=== PATIENT | female | born 1940 | race Caucasian/White ===

== ENCOUNTER 2016-06-24 18:04 | Emergency (ER) | payer MEDICARE ==
[~2016-06-24] VITALS: Ht 162.6 cm; Wt 75.6 kg
[~2016-06-24 18:04] MED LIST: AMLO10 PO; ASPI-94 PO; ENAL5 PO; FURO1TAB93 PO; GLYB5TAB3 PO; PROT40TA PO; TOPR25TA2 PO
[2016-06-24 18:06] VITALS: BP 143/67; PULSE 104; RESP 18; TEMP 99.8; O2SAT 97
[2016-06-24 20:05] VITALS: BP 157/61; PULSE 83; RESP 16; O2SAT 83; O2SAT 98
[2016-06-24] MEDS ORDERED: METF500T PO (20:17)
[2016-06-24] MEDS ORDERED: NIAC250T3 PO (20:17)
[2016-06-24] MEDS ORDERED: FURO40TA PO (20:17)
[2016-06-24] MEDS ORDERED: AMLO10TA2 PO (20:17)
[2016-06-24] MEDS ORDERED: ASPI81CH37 CHEW (20:17)
[2016-06-24] MEDS ORDERED: METO25TA3 PO (20:17)
[2016-06-24] MEDS ORDERED: ENAL5TAB PO (20:17)
[2016-06-24] MEDS ORDERED: SIMV40TA PO (20:17)
[2016-06-24] MEDS ORDERED: DOXY100C PO (20:41)
[2016-06-24] MEDS ORDERED: BENZ100 PO (20:41)
--- NOTE | 2016-06-24 20:42 | PD ---
HPI Chief Complaint: Cold / Flu Symptoms Time Seen by Provider: 20:19 Travel History International Travel<30 days: No Contact w/Intl Traveler<30days: No Traveled to known affect area: No History of Present Illness HPI This 76-year-old female comes with complaint of cough and congestion. She says she's had some fever at home. We'll to get the reading on the scan and there is no evidence of pneumonia. She is noted to have some coronary artery calcifications and a hiatal hernia. She does smoke cigarettes. She is not short of breath PFSH Past Medical History Hx Anticoagulant Therapy: No Arthritis: Yes Heart Rhythm Problems: Yes Cancer: No Cardiovascular Problems: Yes (HTN) High Cholesterol: Yes Diabetes: Yes Patient Takes Glucophage: Yes Diminished Hearing: No Endocrine: No Genitourinary: No Hypertension: Yes Musculoskeletal: No Neurologic: No Reproductive: No Respiratory: No Tetanus Vaccination: Unknown Influenza Vaccination: No ?: Not Menopausal: Yes : 4 Para: 4 Tubal Ligation: Yes Past Surgical History Abdominal Surgery: Yes (appendectomy) Appendectomy: Yes Section: Yes (X1) Gynecologic Surgery: Yes (, tubal ) Hysterectomy: No Oral Surgery: Yes (tonsillectomy) Tonsillectomy: Yes Social History Alcohol Use: No Tobacco Use: Yes (1 PPD) Substance Use: No Allergies-Medications (Allergen,Severity, Reaction): Coded Allergies: Bee Sting (Verified Allergy, Severe, Anaphylaxis, 06/24/16) Penicillin (Verified Allergy, Intermediate, RASH, 06/24/16) ITCHY RASH ALL OVER Reported Meds & Prescriptions Reported Meds & Active Scripts Active Reported Niacin 250 Mg Tab 250 Mg PO DAILY Amlodipine (Amlodipine Besylate) 10 Mg Tab 10 Mg PO DAILY Simvastatin 40 Mg Tab 40 Mg PO HS Furosemide 40 Mg Tab 40 Mg PO DAILY Enalapril (Enalapril Maleate) 5 Mg Tab 5 Mg PO DAILY Metformin (Metformin HCl) 500 Mg Tab 500 Mg PO BIDPC With meals Metoprolol Tartrate 25 Mg Tab 25 Mg PO BID Aspirin Low Dose (Aspirin) 81 Mg Chew 81 Mg CHEW DAILY Review of Systems General / Constitutional: Positive: Fever Eyes: No: Diploplia, Blurred Vision HENT: No: Headaches Cardiovascular: No: Chest Pain or Discomfort Respiratory: Positive: Cough Gastrointestinal: No: Vomiting, Diarrhea Genitourinary: No: Dysuria Skin: No Rash Hematologic/Lymphatic: No: Easy Bruising Physical Exam Narrative GENERAL: Well-developed female SKIN: Warm and dry. HEAD: Atraumatic. Normocephalic. EYES: Pupils equal and round. No scleral icterus. No injection or drainage. ENT: No nasal bleeding or discharge. Mucous membranes pink and moist. NECK: Trachea midline. No JVD. CARDIOVASCULAR: Regular rate and rhythm. No murmur appreciated. RESPIRATORY: No accessory muscle use. Clear to auscultation. Breath sounds equal bilaterally. GASTROINTESTINAL: Abdomen soft, non-tender, nondistended. Hepatic and splenic margins not palpable. MUSCULOSKELETAL: No obvious deformities. No clubbing. No cyanosis. No edema. NEUROLOGICAL: Awake and alert. No obvious cranial nerve deficits. Motor grossly within normal limits. Normal speech. PSYCHIATRIC: Appropriate mood and affect; insight and judgment normal. Data Data Last Documented VS Vital Signs Date Time Temp Pulse Resp B/P Pulse Ox O2 Delivery O2 Flow Rate FiO2 06/24/16 20:03 83 18 98 Room Air 06/24/16 18:06 99.8 143/67 MDM Medical Decision Making Medical Screen Exam Complete: Yes Emergency Medical Condition: Yes Medical Record Reviewed: Yes Differential Diagnosis Differential includes pneumonia, bronchitis, influenza Narrative Course Patient has been sick for several days. He had a CT scan done today which does not show any infiltrates. She is a smoker so I think it would be reasonable to put her on antibiotics. I don't think testing for influenza would be beneficial as she's been sick for 2 or 3 days. Diagnosis Primary Impression: Bronchitis Scripts Benzonatate (Tessalon Perles)100 Mg [id number] Mg PO TID PRN (COUGH) #15 CAP Ref 0 Prov:Xavier Petty MD 06/24/16 Doxycycline Hyclate 100 Mg [id number] Mg PO BID #20 CAP Ref 0 Prov:Xavier Petty MD 06/24/16 Disposition: DISCHARGE HOME Condition: Stable Xavier Petty MD Jun 24, 2016 20:42
[2016-06-24] MEDS ORDERED: DOXYCYCLINE HYCLATE 100 MG CAP PO ONE (20:45)
[2016-06-24 20:55] VITALS: BP 156/69; PULSE 75; RESP 16; O2SAT 98
== END 2016-06-24 21:15 | disposition home or self-care (01) ==
LOC: PHED 18:04
DX: J40 Bronchitis, not specified as acute or chronic (principal); R50.9 Fever, unspecified; F17.210 Nicotine dependence, cigarettes, uncomplicated; I10 Essential (primary) hypertension; E78.00 Pure hypercholesterolemia, unspecified; E11.9 Type 2 diabetes mellitus without complications
CPT/HCPCS: 99283

== ENCOUNTER 2017-08-23 11:51 | Emergency (ER) | payer MEDICARE ==
[~2017-08-23 11:51] MED LIST changes: -AMLO10 PO; +AMLO10TA2 PO; -ASPI-94 PO; +ASPI81CH6 CHEW; +BENZ100 PO; +DOXY100C PO; -ENAL5 PO; +ENAL5TAB PO; -FURO1TAB93 PO; +FURO40TA PO; -GLYB5TAB3 PO; +METF500T PO; +METO25TA3 PO; +NIAC250T3 PO; -PROT40TA PO; +SIMV40TA PO; -TOPR25TA2 PO
[2017-08-23 11:54] VITALS: BP 223/87; PULSE 67; RESP 18; TEMP 98; O2SAT 100
--- NOTE | 2017-08-23 12:10 | PD ---
HPI . Fall Chief Complaint: Fall Time Seen by Provider: 12:01 Travel History International Travel<30 days: No Contact w/Intl Traveler<30days: No Traveled to known affect area: No History of Present Illness HPI Patient presents to us via [facility] A waves of injury sustained in a fall which occurred last night. She states that she had gotten up to go to the bathroom and apparently tripped and hit her forehead on the wall. She denies loss of consciousness. She does not have any signs or symptoms of a head injury such as ordered vision, nausea, incoordination, altered mental status. She does not take a blood thinner. In addition to her forehead pain, she is complaining with left ankle pain. She thinks that she may have twisted her ankle during the fall. She rates both the forehead and the ankle pain as 9/10 but states that both are improving. She has an ice pack on the forehead and the icepack has helped her head pain. PFSH Past Medical History Hx Anticoagulant Therapy: No Arthritis: Yes Heart Rhythm Problems: Yes Cancer: No Cardiovascular Problems: Yes (HTN) High Cholesterol: Yes Diabetes: Yes Patient Takes Glucophage: Yes Diminished Hearing: No Endocrine: No Genitourinary: No Hypertension: Yes Musculoskeletal: No Neurologic: No Reproductive: No Respiratory: No Tetanus Vaccination: > 5 Years Influenza Vaccination: Yes ?: Not Menopausal: Yes : 4 Para: 4 Tubal Ligation: Yes Past Surgical History Abdominal Surgery: Yes (appendectomy) Appendectomy: Yes Section: Yes (X1) Gynecologic Surgery: Yes (, tubal ) Hysterectomy: No Oral Surgery: Yes (tonsillectomy) Tonsillectomy: Yes Other Surgery: Yes Social History Alcohol Use: No Tobacco Use: Yes (1/2 PPD) Substance Use: No Allergies-Medications (Allergen,Severity, Reaction): Coded Allergies: bee venom protein (honey bee) (Unverified Allergy, Severe, Anaphylaxis, ) penicillin G (Unverified Allergy, Intermediate, RASH, 08/23/17) ITCHY RASH ALL OVER Reported Meds & Prescriptions Reported Meds & Active Scripts Active Reported Amlodipine (Amlodipine Besylate) 10 Mg Tab 10 Mg PO DAILY Simvastatin 40 Mg Tab 40 Mg PO HS Furosemide 40 Mg Tab 40 Mg PO DAILY Enalapril (Enalapril Maleate) 5 Mg Tab 5 Mg PO DAILY Metformin (Metformin HCl) 500 Mg Tab 500 Mg PO BIDPC With meals Metoprolol Tartrate 25 Mg Tab 25 Mg PO BID Review of Systems Except as stated in HPI: all other systems reviewed are Neg Physical Exam Narrative GENERAL: Awake and alert and in no acute distress. SKIN: Warm and dry. HEAD: Normocephalic. Minor contusion noted to the left forehead. EYES: Pupils are equal. Extraocular movements are intact. Distally NECK: Normal range of motion. Nontender. Bili RESPIRATORY: Nonlabored respirations. Bili MUSCULOSKELETAL: Left ankle has no obvious deformity. No significant bruising or swelling. Tenderness over the lateral malleolus. Ankle is stable. Distally neurovascularly intact. NEUROLOGICAL: A and O 3. Cranial nerves are grossly intact. She is moving all 4 extremities equally. PSYCHIATRIC: Appropriate mood and affect. Data Data Last Documented VS Vital Signs Date Time Temp Pulse Resp B/P (MAP) Pulse Ox O2 Delivery O2 Flow Rate FiO2 08/23/17 13:11 75 16 217/90 (132) 99 Room Air 08/23/17 11:[address] Brain W/O Iv Contrast(Rout) (08/23/17 12:01) Ankle, Complete ([id number]) (08/23/17 12:01) MDM Medical Decision Making Medical Screen Exam Complete: Yes Emergency Medical Condition: Yes Differential Diagnosis My differential diagnosis of head trauma includes but is not limited to scalp contusion, concussion, intracerebral hemorrhage. Differential diagnosis of extremity trauma includes but is not limited to fracture, sprain or strain, dislocation, contusion Narrative Course This patient presents for the evaluation of injury sustained in a fall last night. She struck her forehead on the wall and probably twisted her left ankle. Her physical exam is pretty unremarkable. She has a very minor contusion noted to the left forehead. She has some tenderness in the lateral malleolus but no deformity, swelling, bruising or instability. Last Impressions Head CT 08/23/17 1201 Signed Impressions: Service Date/Time: Wednesday, August 23, 2017 12:12 - CONCLUSION: 1. No acute intracranial abnormalities. Frontal scalp swelling. Devin Nick MD Ankle X-Ray 08/23/17 1201 Signed Impressions: Service Date/Time: Wednesday, August 23, 2017 12:23 - CONCLUSION: Moderate lateral soft tissue swelling. Possible avulsion type injuries of the tip of the medial and lateral malleolus. Vijay Walls MD The plain films were independently viewed by me. The patient will be placed in a Hansen dressing and cast shoe. She will be given crutches. She will be given a referral to podiatry. Diagnosis Primary Impression: Scalp contusion Qualified Codes: S00.03XA - Contusion of scalp, initial encounter Additional Impression: Closed left ankle fracture Qualified Codes: S82.892A - Other fracture of left lower leg, initial encounter for closed fracture Referrals: Demarcus BurnetteM Patient Instructions: Ankle Fracture (DC), General Instructions, Scalp Contusion in Adults (ED) Med/Other Pt SpecificInfo: Prescription(s) given Scripts Hydrocodone-Acetaminophen ([place]) 5 Mg-325 Mg Tab 1 TAB PO Q4H Y for PAIN, #12 TAB 0 Refills Prov: Jamilah Malik MD 08/23/17 Disposition: 01 DISCHARGE HOME Condition: Stable Jamilah Malik MD Aug 23, 2017 12:09
--- NOTE | 2017-08-23 12:30 | RADRPT ---
EXAM DATE/TIME: 08/23/2017 12:12 [facility] COMPARISON: No previous studies available for comparison. INDICATIONS : Trauma. Tripped and fell and hit forehead last night. RADIATION DOSE: 59.86 CTDIvol (mGy) MEDICAL HISTORY : Diabetes mellitus type 2. Hypertension. SURGICAL HISTORY : Appendectomy. section.Tubal ligation. ENCOUNTER: Initial ACUITY: 1 day PAIN SCALE: 5/10 LOCATION: cranial TECHNIQUE: Multiple contiguous axial images were obtained of the head. Using automated exposure control and adj ustment of the mA and/or kV according to patient size, radiation dose was kept as low as reasonably a chievable to obtain optimal diagnostic quality images. DICOM format image data is available electro nically for review and comparison. FINDINGS: CEREBRUM: The ventricles are normal for age. No evidence of midline shift, mass lesion, hemorrhage or acute in farction. No extra-axial fluid collections are seen. POSTERIOR FOSSA: The cerebellum and brainstem are intact. The 4th ventricle is midline. The cerebellopontine angle i s unremarkable. EXTRACRANIAL: The visualized portion of the orbits is intact. SKULL: The calvaria is intact. No evidence of skull fracture. CONCLUSION: 1. No acute intracranial abnormalities. Frontal scalp swelling. Devin Nick MD on August 23, 2017 at 12:20 Board Certified Radiologist. This report was verified electronically.
--- NOTE | 2017-08-23 12:52 | RADRPT ---
EXAM DATE/TIME: 08/23/2017 12:23 [facility] COMPARISON: No previous studies available for comparison. INDICATIONS : Fall, complains of left ankle pain and swelling. MEDICAL HISTORY : Diabetes mellitus type II. Hypertension SURGICAL HISTORY : Appendectomy. section. Tubal ligation. ENCOUNTER: Initial ACUITY: 2 days PAIN SCORE: 5/10 LOCATION: Left ankle FINDINGS: Osseous structures are osteopenic. There is moderate soft tissue swelling of lateral aspect of the an kle. On the frontal view, there is a small ossific density measuring 5 mm located inferior to the med ial malleolus, possibly representing an avulsion injury. There is a similar appearing ossific density inferior to the tip of the medial malleolus, also suggesting avulsion injury. Ankle mortise is intac t. No radiopaque foreign bodies. Small plantar and retro- calcaneal spur. CONCLUSION: Moderate lateral soft tissue swelling. Possible avulsion type injuries of the tip of the medial and l ateral malleolus. Vijay Walls MD on August 23, 2017 at 12:49 Board Certified Radiologist. This report was verified electronically.
[2017-08-23 13:11] VITALS: BP 217/90; PULSE 75; RESP 16; O2SAT 99
[2017-08-23] MEDS ORDERED: NORC5TAB PO (13:19)
[2017-08-23 13:38] VITALS: BP 205/90
== END 2017-08-23 13:51 | disposition home or self-care (01) ==
LOC: PHED 11:51
DX: S82.892A Other fracture of left lower leg, initial encounter for closed fracture (principal); S00.03XA Contusion of scalp, initial encounter; W01.0XXA Fall on same level from slipping, tripping and stumbling without subsequent striking against object, initial encounter
CPT/HCPCS: 70450; 73610; 99284; E0113; L3260

== ENCOUNTER 2017-12-31 12:47 | Inpatient (IN) ==
[2017-12-31] MEDS ORDERED: Diphtheria/Tetanus/Pertussis Vaccine Inj 0.5 ML Syringe IM ONE (13:07)
[2017-12-31] MEDS ORDERED: Sodium Chlor 0.9% Inj 500 ML IV.SIG ONE (13:07)
[2017-12-31] MEDS ORDERED: Lidocaine PF 1% Inj 30 ML Vial INFILTRATN ONE (13:07)
--- NOTE | 2017-12-31 13:19 | ED ---
HPI General Chief complaint: Fall Stated complaint: Fall Time Seen by Provider: 12/31/17 13:07 Source: patient and EMS Mode of arrival: EMS History of Present Illness HPI narrative: 77yF brought in by EMS after a fall. The patient states that she was trying to clean her ceiling fan when she "lost my footing", falling backwards off the bed and landing on her right ankle. She reports immediate severe pain to her right ankle with inability to bear weight, and also reports sustaining a skin tear to her left hand. Denies head injury or LOC, neck or back pain, chest or abdominal pain. She does not recall when her last tetanus shot was. She does not take any anticoagulants or antiplatelets. Family history non-contributory. Related Data Home Medications Medication Instructions Recorded Confirmed enalapril maleate 20 mg PO DAILY 12/31/17 12/31/17 hydrocodone-acetaminophen 1 tab PO Q6H PRN 12/31/17 12/31/17 metformin 500 mg PO BID 12/31/17 12/31/17 metoprolol tartrate 25 mg PO BID 12/31/17 12/31/17 sertraline 50 mg PO DAILY 12/31/17 12/31/17 simvastatin 40 mg PO QPM 12/31/17 12/31/17 Allergies Allergy/AdvReac Type Severity Reaction Status Date / Time bee venom protein (honey bee) Allergy Severe Anaphylaxis Unverified 12/31/17 12: 52 penicillin G Allergy Intermediate RASH Unverified 12/31/17 12:52 Review of Systems Except as stated in HPI: all other systems reviewed are negative Constitutional Denies fever(s) Eyes Denies blurry vision ENT Reports nasal congestion Cardiovascular Denies chest pain Respiratory Denies cough Gastrointestinal Denies nausea Genitourinary Denies dysuria Musculoskeletal Denies back pain Neurologic Denies confusion Psychiatric Denies confusion PMFSH History History Provided By: Patient Medical History Medical History Chronic back pain (Acute) Depression (Acute) Hyperlipemia (Acute) Hypertension (Acute) Type 2 diabetes mellitus (Acute) Surgical History Surgical History H/O section (Acute) H/O tubal ligation (Acute) Hx of appendectomy (Acute) Hx of tonsillectomy (Acute) Social History Social History Substance History: No History of Abuse Second Hand Smoke Exposure: Yes Smoking Status: Current every day smoker Tobacco Type: Cigarettes How Often Do You Have a Drink Containing Alcohol: Never Recent Travel in [facility] within the Last 8 Weeks: No Recent Out of Country Travel within the Last 8 Weeks: No Immunization History Tetanus Immunization: >5 Years Exam Const General: healthy appearing and no acute distress [facility] Head: normocephalic and atraumatic Face and sinus: normal facial exam Other: No raccoon eyes or Downs's sign No epistaxis or septal hematoma No intraoral trauma Mallampati III Eyes General: appearance normal, both eyes and all related structures Pupils: PERRL Neck Other: No midline cervical spinal tenderness Chest Chest: normal inspection of the chest Resp Effort & Inspection: normal respiratory effort Auscultation: no rhonchi and no wheezes Cardio Rate: regular rate Rhythm: regular rhythm GI Inspection: non-distended Palpation: soft and nontender Skin Other: 2 cm skin tear to dorsum of left hand/ wrist, no active bleeding, non- tender, normal painless ROM of wrist/ elbow/ fingers Superficial abrasion to left wrist Neuro General: alert, awake, oriented x3 and no focal motor deficits Extrem Other: Angulated deformity of right ankle, dorsalis pedis pulses 2+ on left and 1+ on right, able to wiggle all digits, sensation intact Psych Affect: normal affect Procedures Orthopedic Fracture Reduction Fracture #1: Time Out Performed: Yes Side: right Fracture Reduction Location: other (ankle) Analgesia: procedural sedation and hematoma block Technique: direct manipulation and traction/counter-traction Post Reduction X-rays Demonstrate: acceptable reduction Post-Reduction Neuro Exam: intact Post-Reduction Vascular Exam: intact Splint Applied: Yes Patient Tolerated Procedure: well Procedural Sedation Indications: fracture/dislocation reduction ASA Class: ASA 2 Moderate Systemic Disease Time of Last PO Intake: 08:00 Preparation: air sampling and monitoring applied, pulse oximeter, capnometry used, supplemental O2 applied, suction/airway equipment at bedside and IV secured IV Propofol Dose (mgs): 50 Patient Tolerated Procedure: well Complications: none Additional Comments: Patient directly observed and kept on air sampling and monitoring, capnometry, and pulse ox until she returned to baseline mental status. Course Consultations Consultation #1: Case discussed with ortho AP working with Dr. Gil. Patient will need operative intervention tomorrow AM, requests that patient be made NPO after midnight. Will d/w internal medicine team. Time: 16:25 Initial Documented Vital Signs Temperature 97.7 F 12/31/17 12:53 Pulse Rate 60 12/31/17 12:53 Respiratory Rate 17 12/31/17 12:53 Blood Pressure 176/71 H 12/31/17 12:53 Pulse Oximetry 96 12/31/17 12:53 Last Documented Vital Signs Temperature 97.7 F 12/31/17 12:53 Pulse Rate 58 L 12/31/17 14:00 Respiratory Rate 20 12/31/17 14:00 Blood Pressure 163/68 H 12/31/17 14:00 Pulse Oximetry 97 12/31/17 14:00 Medical Decision Making MDM Narrative Medical decision making narrative: Assessment: 77yF presenting with right ankle fracture/ dislocation and left hand skin tear Plan: Pain control Update tetanus Patient will need sedation for urgent reduction of ankle dislocation, last meal around 8 AM today Ortho consult Addendum: Case discussed with ortho and internal medicine; patient needs operative intervention tomorrow AM. Will be NPO after midnight. I explained these results to the patient; she understands and agrees. Lab Data Lab results reviewed: Yes I reviewed the patient's lab results. Result diagrams: 12/31/17 13:15 12/31/17 13:15 Lab Results 12/31/17 12/31/17 12/31/17 Range/Units 13:15 13:15 13:15 WBC 8.3 (4.0-11.0) th/mm3 RBC 3.77 L (4.00-5.30) mil/mm3 Hgb 10.6 L (11.6-15.3) gm/dL Hct 31.2 L (35.0-46.0) % MCV 82.7 (80.0-100.0) fL MCH 28.1 (27.0-34.0) pg MCHC 34.0 (32.0-36.0) % RDW 14.3 (11.6-17.2) % Plt Count 126 L (150-450) th/mm3 MPV 10.0 (7.0-11.0) fL Neut % (Auto) 62.2 (16.0-70.0) % Lymph % (Auto) 25.9 (9.0-44.0) % [place] % (Auto) 5.8 (0.0-8.0) % Eos % (Auto) 5.1 H (0.0-4.0) % Baso % (Auto) 1.0 (0.0-2.0) % Neut # (Auto) 5.2 (1.8-7.7) th/mm3 Lymph # (Auto) 2.2 (1.0-4.8) th/mm3 [place] # (Auto) 0.5 (0.0-0.9) th/mm3 Eos # (Auto) 0.4 (0.0-0.4) th/mm3 Baso # (Auto) 0.1 (0.0-0.2) th/mm3 WBC Differential . Differential Comment Auto diff final PT 9.9 (9.8-11.6) sec INR 1.0 Ratio Sodium 142 (136-145) meq/L Potassium 5.4 H (3.5-5.1) meq/L Chloride 113 H (98-107) meq/L Carbon Dioxide 23.1 (21.0-32.0) meq/L Anion Gap 6 (5-15) meq/L BUN 41 H (7-18) mg/dL Creatinine 1.78 H (0.50-1.00) mg/dL Estimated GFR 28 L (>89) mL/min Random Glucose 103 (74-106) mg/dL Calcium 8.2 L (8.5-10.1) mg/dL Imaging Data Radiologist's impression: Ankle X-Ray 12/31/17 13:40 CONCLUSION: Bimalleolar fractures with medial subluxation of the distal tibia. Discharge Plan Discharge Disposition Patient Disposition: 30 Still Patient Discharge Condition Condition: Good Discharge Details Diagnosis: Bimalleolar fracture of right ankle, Closed dislocation of right ankle Physicians Team ED Provider: Jessica Lowe Primary Care Provider: UNKNOWN, Other Providers: Bull Gil Rxs /Orders / Referrals /Forms Prescriptions: No Action metformin 500 mg Tablet 500 mg PO BID RF: 0 enalapril maleate 20 mg Tablet 20 mg PO DAILY RF: 0 simvastatin 40 mg Tablet 40 mg PO QPM RF: 0 sertraline 50 mg Tablet 50 mg PO DAILY RF: 0 metoprolol tartrate 25 mg Tablet 25 mg PO BID RF: 0 hydrocodone-acetaminophen 5-325 mg Tablet 1 tab PO Q6H PRN (Reason: Acute Pain) RF: 0 Discharge Interventions Interventions: Vital Signs Last Done: 12/31/17 14:00 Status ED Status: With Doctor
[2017-12-31 13:25] LABS: Baso # (Auto) 0.1 th/mm3 (0.0-0.2); Eos # (Auto) 0.4 th/mm3 (0.0-0.4); Eos % (Auto) 5.1 % (0.0-4.0); Hematocrit 31.2 % (35.0-46.0); Hemoglobin 10.6 gm/dL (11.6-15.3); Lymph # (Auto) 2.2 th/mm3 (1.0-4.8); Lymph % (Auto) 25.9 % (9.0-44.0); Mean Corpuscular Hemoglobin 28.1 pg (27.0-34.0); Mean Corpuscular Volume 82.7 fL (80.0-100.0); Mono # (Auto) 0.5 th/mm3 (0.0-0.9); Mono % (Auto) 5.8 % (0.0-8.0); Neut # (Auto) 5.2 th/mm3 (1.8-7.7); Neut % (Auto) 62.2 % (16.0-70.0); Platelet Count 126 th/mm3 (150-450); Red Blood Count 3.77 mil/mm3 (4.00-5.30); Red Cell Distribution Width 14.3 % (11.6-17.2); White Blood Count 8.3 th/mm3 (4.0-11.0)
[2017-12-31 13:37] LABS: Prothrombin Time 9.9 sec (9.8-11.6)
[2017-12-31 13:47] LABS: Calcium 8.2 mg/dL (8.5-10.1); Carbon Dioxide 23.1 meq/L (21.0-32.0); Potassium 5.4 meq/L (3.5-5.1)
--- NOTE | 2017-12-31 15:38 | XR ---
EXAM DATE: 12/31/2017 2:34 PM EDT AGE/SEX: 77 years / Female INDICATIONS: Post reduction right ankle. CLINICAL DATA: This is the patient's subsequent encounter. Patient reports that signs and symptoms h ave been present for 1 day and indicates a pain score of 8/10. MEDICAL/SURGICAL HISTORY: None. None. COMPARISON: [facility], ANKLE LEFT COMPLETE ([id number]), 08/23/2017. . FINDINGS: Bimalleolar fractures noted. There is some persistent medial subluxation of the distal tibia on the t alar dome. Overlying soft tissue swelling is present. CONCLUSION: Bimalleolar fractures with medial subluxation of the distal tibia. Electronically signed by: Devin Nick MD 12/31/2017 3:36 PM EDT
[2017-12-31] MEDS ORDERED: Bisacodyl 10 MG Supp RECTAL PRN (16:44)
[2017-12-31] MEDS ORDERED: Temazepam 15 MG Capsule PO PRN (16:44)
[2017-12-31] MEDS ORDERED: Morphine Inj 4 MG/ML Vial IV.PUSH PRN (16:50)
[2017-12-31] MEDS ORDERED: Acetaminophen 325 MG Tablet PO PRN (16:50)
[2017-12-31] MEDS ORDERED: Naloxone Inj 0.4 MG/ML Vial IV.PUSH PRN (16:50)
--- NOTE | 2017-12-31 17:10 | P.HPIM ---
History of Present Illness Primary Care Physician: UNKNOWN Chief Complaint: I fell History of Present Illness: 77-year-old white female with history of hypertension, hyperlipidemia, diabetes mellitus type 2 who was up in a ladder in her bedroom attempting to clean her ceiling fans of which she accidentally lost her balance and fell sustaining injury of her right ankle. She was found to have a bimalleolar layer fracture with medial subluxation of the distal tibial and reduction was done in the emergency room. At this time, patient states her pain is controlled. She did not lose consciousness during the fall. She has no other complaints at this time. - Diagnosis (1) Bimalleolar fracture of right ankle (2) Acute kidney injury (3) CKD (chronic kidney disease) stage 3, GFR 30-59 ml/min (4) Diabetes mellitus (5) Hypertension Review of Systems All other systems reviewed negative except as stated in HPI [facility] - History History Provided By: Patient - Medical History Medical History: Medical History (Last Reviewed 12/31/17 @ 17:04 by Alee Warner MD) Chronic back pain Depression Hyperlipemia Hypertension Type 2 diabetes mellitus - Surgical History Surgical History: Surgical History (Last Reviewed 12/31/17 @ 17:04 by Alee Warner MD) H/O section H/O tubal ligation Hx of appendectomy Hx of tonsillectomy - Family History Family History: Family History (Last Updated 12/31/17 @ 17:05 by Alee Warner MD) Mother Stomach cancer Father PVD (peripheral vascular disease) - Tobacco History Second Hand Smoke Exposure: Yes Tobacco Use In Past 30 Days: Yes Smoking Status: Current every day smoker Tobacco Type: Cigarettes Packs Per Day: 1.5 - Alcohol History How Often Do You Have a Drink Containing Alcohol: Never - Substance Use History Substance History: No History of Abuse - Travel History Recent Travel in the [place] Within the Last 8 Weeks: No Recent Travel Out of the Country Within the Last 8 Weeks: No - Immunization History Tetanus Immunization: >5 Years Medications and Allergies Active Medications: Active Medications Acetaminophen (Tylenol) 650 mg PO Q6HR PRN PRN Reason: PAIN SCALE 1 TO 2 Hydrocodone Bitart/Acetaminophen (Lincoln 5/325) 1 tab PO Q4H PRN PRN Reason: PAIN SCALE 3 TO 5 Hydrocodone Bitart/Acetaminophen (Lincoln 7.5/325) 1 tab PO Q4H PRN PRN Reason: PAIN SCALE 6 TO 10 Al Hydroxide/Mg Hydroxide (Milk Of Magnesia Liq) 30 ml PO Q12H PRN PRN Reason: Mild Constipation Bisacodyl (Dulcolax Supp) 10 mg RECTAL DAILY PRN PRN Reason: SEVERE CONSITIPATION Lactated Ringer's (Lr 1000 Ml Inj) 1,000 mls @ 75 mls/hr IV.CONT .[id number] CHRISTOS Lactulose (Lactulose Liq) 30 ml PO DAILY PRN PRN Reason: SEVERE CONSITIPATION Morphine Sulfate (Morphine Inj) 2 mg IV.PUSH Q3H PRN PRN Reason: PAIN 3-5; IF UABLE TO TAKE PO Morphine Sulfate (Morphine Inj) 4 mg IV.PUSH Q3H PRN PRN Reason: PAIN 6-10;IF UNABLE TO TAKE PO Naloxone HCl (Narcan Inj) 0.4 mg IV.PUSH UNSCH PRN PRN Reason: SEE LABEL COMMENTS Ondansetron HCl (Zofran Inj) 4 mg IV.PUSH Q6H PRN PRN Reason: NAUSEA OR VOMITING Senna/Docusate Sodium (Penny-Colace) 1 tab PO BID CHRISTOS Sennosides (Senokot) 17.2 mg PO Q12H PRN PRN Reason: Moderate Constipation Temazepam (Restoril) 15 mg PO HS PRN PRN Reason: INSOMNIA Allergies Allergy/AdvReac Type Severity Reaction Status Date / Time bee venom protein (honey bee) Allergy Severe Anaphylaxis Unverified 12/31/17 12: 52 penicillin G Allergy Intermediate RASH Unverified 12/31/17 12:52 Home Medications Medication Instructions Recorded Confirmed Type enalapril maleate 20 mg PO DAILY 12/31/17 12/31/17 History hydrocodone-acetaminophen 1 tab PO Q6H PRN 12/31/17 12/31/17 History metformin 500 mg PO BID 12/31/17 12/31/17 History metoprolol tartrate 25 mg PO BID 12/31/17 12/31/17 History sertraline 50 mg PO DAILY 12/31/17 12/31/17 History simvastatin 40 mg PO QPM 12/31/17 12/31/17 History Exam Vital signs: Vital Signs 12/31/17 12:53 12/31/17 13:30 12/31/17 13:48 Temperature 97.7 F Pulse Rate 60 Respiratory Rate 17 Blood Pressure 176/71 H Pulse Oximetry 96 100 100 12/31/17 14:00 Temperature Pulse Rate 58 L Respiratory Rate 20 Blood Pressure 163/68 H Pulse Oximetry 97 Intake & Output 12/30/17 12/31/17 12/31/17 18:59 06:59 18:59 Weight 74.843 kg Narrative: GENERAL: Well-nourished well-developed white female in no acute distress SKIN: Warm and dry. HEAD: Atraumatic. Normocephalic. EYES: Pupils equal and round. No scleral icterus. No injection or drainage. ENT: No nasal bleeding or discharge. Mucous membranes pink and moist. Oropharynx benign NECK: Trachea midline. No JVD. CARDIOVASCULAR: Regular rate and rhythm. RESPIRATORY: No accessory muscle use. Few expiratory wheezes by basilar area GASTROINTESTINAL: Abdomen soft, non-tender, nondistended. Hepatic and splenic margins not palpable. Normoactive bowel sounds MUSCULOSKELETAL: Right lower leg stabilized in a splint and Musa bandage wrapped circumferentially, neurovascularly intact NEUROLOGICAL: Awake and alert to person place time. No obvious cranial nerve deficits. Motor grossly within normal limits. Normal speech. PSYCHIATRIC: Appropriate mood and affect; insight and judgment normal. Results - Labs CBC & Chem 7: 12/31/17 13:15 12/31/17 13:15 Labs: Short CBC 12/31/17 Range/Units 13:15 WBC 8.3 (4.0-11.0) th/mm3 Hgb 10.6 L (11.6-15.3) gm/dL Hct 31.2 L (35.0-46.0) % Plt Count 126 L (150-450) th/mm3 BMP 12/31/17 13:15 Sodium 142 Potassium 5.4 H Chloride 113 H Carbon Dioxide 23.1 BUN 41 H Creatinine 1.78 H Calcium 8.2 L - Imaging Impressions Ankle X-Ray 12/31/17 13:40 CONCLUSION: Bimalleolar fractures with medial subluxation of the distal tibia. - ECG Attestation: I personally reviewed and interpreted this ECG as follows: Interpretation: EKG showed sinus rhythm with heart rate of 52 Caprini VTE Risk Assessment Caprini VTE Risk Assessment: Moderate/High Risk (score >= 2) Caprini Risk Assessment Model: Point Value = 1 Point Value = 2 Point Value = 3 Point Value = 5 Age 41-60 Minor surgery BMI > 25 kg/m2 Swollen legs Varicose veins or History of unexplained or recurrent spontaneous Oral contraceptives or hormone replacement Sepsis (< 1 month) Serious lung disease, including pneumonia (< 1 month) Abnormal pulmonary function Acute myocardial infarction Congestive heart failure (< 1 month) History of inflammatory bowel disease Medical patient at bed rest Age 61-74 Arthroscopic surgery Major open surgery (> 45 min) Laparoscopic surgery (> 45 min) Malignancy Confined to bed (> 72 hours) Immobilizing plaster cast Central venous access Age >= 75 History of VTE Family history of VTE Factor V Leiden Prothrombin [id number] Lupus anticoagulant Anticardiolipin antibodies Elevated serum homocysteine Heparin-induced thrombocytopenia Other congenital or acquired thrombophilia Stroke (< 1 month) Elective arthroplasty Hip, pelvis, or leg fracture Acute spinal cord injury (< 1 month) Prophylaxis Regimen: Total Risk Factor Score Risk Level Prophylaxis Regimen 0-1 Low Early ambulation 2 Moderate Order ONE of the following: *Sequential Compression Device (SCD) *Heparin 5000 units SQ BID 3-4 Higher Order ONE of the following medications: *Heparin 5000 units SQ TID *Enoxaparin/Lovenox 40 mg SQ daily (WT < 150 kg, CrCl > 30 mL/min) *Enoxaparin/Lovenox 30 mg SQ daily (WT < 150 kg, CrCl > 10-29 mL/min) *Enoxaparin/Lovenox 30 mg SQ BID (WT < 150 kg, CrCl > 30 mL/min) AND/OR *Sequential Compression Device (SCD) 5 or more Highest Order ONE of the following medications: *Heparin 5000 units SQ TID (Preferred with Epidurals) *Enoxaparin/Lovenox 40 mg SQ daily (WT < 150 kg, CrCl > 30 mL/min) *Enoxaparin/Lovenox 30 mg SQ daily (WT < 150 kg, CrCl > 10-29 mL/min) *Enoxaparin/Lovenox 30 mg SQ BID (WT < 150 kg, CrCl > 30 mL/min) AND *Sequential Compression Device (SCD) Assessment and Plan - Assessment (1) Bimalleolar fracture of right ankle Code(s): S82.841A - Displaced bimalleolar fracture of right lower leg, initial encounter for closed fracture Status: Acute (2) Acute kidney injury Code(s): N17.9 - Acute kidney failure, unspecified Status: Acute (3) CKD (chronic kidney disease) stage 3, GFR 30-59 ml/min Code(s): N18.3 - Chronic kidney disease, stage 3 (moderate) Status: Chronic (4) Diabetes mellitus Code(s): E11.9 - Type 2 diabetes mellitus without complications Status: Chronic (5) Hypertension Code(s): I10 - Essential (primary) hypertension Status: Chronic - Plan 77-year-old white female with a history of diabetes mellitus type 2, hypertension who presented after sustaining a fall with 1. Right bimalleolar lower ankle fracture with dislocationpain medication has been initiated. Consult orthopedic surgery Dr. Sue will plan for surgical intervention in the morning. 2. Hypertension, chronic essential resume home enalapril if Hyperkalemia improves. 3. Acute kidney injury superimposed on chronic kidney disease stage IIIavoid nephrotoxins; IV fluid hydration and monitor 4. Hyperlipidemiaresume statin 5. Diabetes mellitus type 2stop home metformin due to chronic kidney disease, Accu-Cheks with sliding scale insulin 6. DVT prophylaxisSCD to left lower leg. Anticoagulation to be held until surgical intervention completed. 7. Tobacco usecessation counseling provided. Encouraged incentive spirometry use, DuoNeb as needed to be provided. 8. hyperkalemia - hold enalapril today, recheck in am (1) Bimalleolar fracture of right ankle Qualifiers: Encounter type: initial encounter Fracture type: closed Qualified Code(s): S82.841A - Displaced bimalleolar fracture of right lower leg, initial encounter for closed fracture (4) Diabetes mellitus Qualifiers: Diabetes mellitus type: type 2 Diabetes mellitus intermission coordinator insulin use: without intermission coordinator use Diabetes mellitus complication status: with kidney complications Diabetes mellitus complication detail: with chronic kidney disease Chronic kidney disease stage: stage 3 (moderate) Qualified Code(s): E11.22 - Type 2 diabetes mellitus with diabetic chronic kidney disease; N18.3 - Chronic kidney disease, stage 3 (moderate) (5) Hypertension Qualifiers: Hypertension type: essential hypertension Qualified Code(s): I10 - Essential (primary) hypertension
[2017-12-31] MEDS ORDERED: Dextrose 50% in Water 50 ML Vial IV.PUSH PRN (17:14)
[2017-12-31] MEDS: Morphine Inj 4 MG/ML Vial IV.PUSH PRN (19:29)
[2018-01-01] MEDS: Morphine Inj 4 MG/ML Vial IV.PUSH PRN ×2 (02:59→06:00)
[2018-01-01] MEDS: Insulin NovoLOG Aspart Correctional Sugar Inj SQ SCH ×5 (03:00→20:10)
[2018-01-01] MEDS: Senna/Docusate Sodium 8.6/50 MG Tablet PO SCH ×3 (03:00→20:10)
[2018-01-01] MEDS: Metoprolol Tartrate 25 MG Tablet PO SCH ×4 (03:01→20:09)
[2018-01-01 06:10] LABS: Calcium 8.3 mg/dL (8.5-10.1); Carbon Dioxide 23.3 meq/L (21.0-32.0); Potassium 4.8 meq/L (3.5-5.1)
--- NOTE | 2018-01-01 06:38 | P.PNOP ---
Subjective Interval history: s/p fall at home right ankle pain. no other complaints Physical Exam Vital signs: Vital Signs 12/31/17 12:53 12/31/17 13:30 12/31/17 13:48 Temperature 97.7 F Pulse Rate 60 Respiratory Rate 17 Blood Pressure 176/71 H Pulse Oximetry 96 100 100 12/31/17 14:00 12/31/17 16:00 12/31/17 18:00 Temperature Pulse Rate 58 L 56 L 60 Respiratory Rate 20 19 19 Blood Pressure 163/68 H 161/72 H 165/70 H Pulse Oximetry 97 97 12/31/17 20:00 12/31/17 21:52 12/31/17 23:15 Temperature 97.4 F L Pulse Rate 52 L 54 L Respiratory Rate 18 15 Blood Pressure 131/53 L Pulse Oximetry 95 01/01/18 00:00 01/01/18 02:06 01/01/18 04:00 Temperature 98.2 F 98.0 F Pulse Rate 51 L 58 L Respiratory Rate 18 18 18 Blood Pressure 127/57 L 124/56 L Pulse Oximetry 96 98 Intake & Output 12/31/17 12/31/17 01/01/18 06:59 18:59 06:59 Weight 74.843 kg Other: Date of Last Bowel Movement 12/31/17 Narrative: RLE: +short leg splint. good repair. nvi Results - Labs CBC & Chem 7: 12/31/17 13:15 01/01/18 04:19 Laboratory Results - last 24 hr 12/31/17 12/31/17 12/31/17 13:15 13:15 13:15 WBC 8.3 RBC 3.77 L Hgb 10.6 L Hct 31.2 L MCV 82.7 MCH 28.1 MCHC 34.0 RDW 14.3 Plt Count 126 L MPV 10.0 Neut % (Auto) 62.2 Lymph % (Auto) 25.9 Davidson % (Auto) 5.8 Eos % (Auto) 5.1 H Baso % (Auto) 1.0 Neut # (Auto) 5.2 Lymph # (Auto) 2.2 Davidson # (Auto) 0.5 Eos # (Auto) 0.4 Baso # (Auto) 0.1 WBC Differential . Differential Comment Auto diff final PT 9.9 INR 1.0 Sodium 142 Potassium 5.4 H Chloride 113 H Carbon Dioxide 23.1 Anion Gap 6 BUN 41 H Creatinine 1.78 H Estimated GFR 28 L POC Glucose Random Glucose 103 Calcium 8.2 L 12/31/17 01/01/18 19:32 04:19 WBC RBC Hgb Hct MCV MCH MCHC RDW Plt Count MPV Neut % (Auto) Lymph % (Auto) Davidson % (Auto) Eos % (Auto) Baso % (Auto) Neut # (Auto) Lymph # (Auto) Davidson # (Auto) Eos # (Auto) Baso # (Auto) WBC Differential Differential Comment PT INR Sodium 141 Potassium 4.8 Chloride 112 H Carbon Dioxide 23.3 Anion Gap 6 BUN 44 H Creatinine 1.73 H Estimated GFR 29 L POC Glucose 116 H Random Glucose 98 Calcium 8.3 L - Imaging Impressions Ankle X-Ray 12/31/17 13:40 CONCLUSION: Bimalleolar fractures with medial subluxation of the distal tibia. Assessment and Plan - Assessment and Plan 1) Right Ankle Fx -npo -consents -surgery today with Linette
[2018-01-01] MEDS: Sertraline 50 MG Tablet PO SCH (07:00)
--- NOTE | 2018-01-01 07:46 | MB ---
cc: Bull Sue MD DATE: 01/01/2018 DATE OF CONSULTATION: 01/01/2018. CONSULTING PHYSICIAN: Dr. Alee Warner. BRIEF HISTORY: Ghazala is a 77-year-old female who has multiple medical problems including hypertension, high cholesterol, smoking dependence and diabetes. She was attempting to clean her fans. She was on a stepladder. She lost her balance and fell. She had immediate right ankle pain. She presented to the Emergency Room, where x-rays revealed a displaced right ankle fracture. She is currently awake and alert on the orthopedic floor. Her only complaint is her right ankle. She denies dizziness, syncope or loss of consciousness. She describes a mechanical fall. PAST MEDICAL HISTORY: Chronic back pain, depression, high cholesterol, hypertension, type 2 diabetes and smoking dependence. PAST SURGICAL HISTORY: , tubal ligation, appendectomy, tonsillectomy. ALLERGIES: PENICILLIN AND BEE STINGS. FAMILY HISTORY: Positive for stomach cancer in her mother and peripheral vascular disease in her father. SOCIAL HISTORY: The patient smokes a pack and a half of cigarettes a day. She denies drug use. She denies alcohol use. REVIEW OF SYSTEMS: The patient denies fevers, chills, weight loss, headache, visual changes, hearing loss, chest pain, palpitations, shortness of breath, nausea, vomiting, urinary changes, diarrhea, neck pain, back pain, skin rashes, weakness or numbness of extremities, anxiety or depression. She complains of right ankle pain. LABORATORY DATA: The patient has a white blood cell count of 8.3, hematocrit of 31.2, platelet count of 126. INR is 1.0, BUN is 41, creatinine is 1.78. X-RAYS: X-rays of right ankle were reviewed. X-rays reveal a displaced right ankle bimalleolar fracture. PHYSICAL EXAMINATION: GENERAL: The patient is a 77-year-old female. She is awake and alert. She is alert and oriented x3. She is in no acute distress. She is mildly overweight. VITAL SIGNS: Temperature 98.0, pulse 58, respirations 18, blood pressure 124/56, O2 saturation is 98% on room air. HEAD: The patient is normocephalic. Pupils are equal. NECK: Soft, nontender. The trachea is midline. ABDOMEN: Soft, nontender, nondistended. EXTREMITIES: Examination of bilateral upper extremities reveals no pain with shoulder, elbow or wrist motion. She has intact sensation in all fingers. She has good cap refill in all fingers. Skin is intact to both hands. Radial pulses are palpable. Examination of her right leg reveals no pain with hip or knee motion. She is tender to palpation over the right ankle. She has mild swelling present. Skin is intact. She has good capillary refill in her toes. Examination of left leg reveals no pain with hip, knee or ankle motion. Skin is intact. Dorsalis pedis pulses palpable. Sensation is intact. IMPRESSION: 1. Diabetes. 2. Hypertension. 3. Smoking dependence. 4. 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 5. Displaced right ankle fracture. PLAN: Treatment options were discussed with the patient. At this point, I would recommend open reduction internal fixation of right ankle fractures. Risks of surgery include bleeding, infection, injuries to arteries, nerves or blood vessels; nonunion, malunion, wound infection, wound complications, as well as medical complications including blood clot, stroke, heart attack and . If the patient has increased swelling, she may need a staged procedure with temporary external fixation followed by delayed open reduction and internal fixation. I explained to her that she will need to be strictly nonweightbearing for 6-8 weeks. She will need to stop smoking. Smoking greatly increases the risk of nonunion and infection and wound complications. Postoperatively, the patient will be placed on calcium and vitamin D. All questions were answered. A mid-level provider in my office, nurse practitioner or PA, may see this patient on a follow-up basis and continue to implement the objective of this plan including: Starting or adjusting medications, injections of muscle, tendon, bursa or joints, cast application, orthotic or brace application, physical therapy, further radiographic studies including x-ray, MRI, CT, ultrasounds or bone scan, vascular studies, neurologic studies, or other specialist consultations, and proceeding with surgical management as appropriate. MD TAYLER Michelle/GORDO , 07:24 AM , 07:45 AM
[2018-01-01] MEDS ORDERED: Non-Formulary Drug (Enalapril Maleate [Enalapril Maleate] 20 MG) PO SCH (09:00)
[2018-01-01] MEDS ORDERED: Post-op Orders (for Pharmacy) OTHER STA (10:26)
--- NOTE | 2018-01-01 10:26 | P.OP ---
- Preoperative Diagnosis (1) Closed trimalleolar fracture of right ankle Date of procedure: 01/01/18 Procedure: Open reduction internal fixation right ankle trimalleolar fracture, open reduction internal fixation right ankle syndesmosis Anesthesia: LFORYA Surgeon: Bull Gil MD Swim Instructor: VICKY Cruz PA-C The surgical procedure was assisted by my physician medical assistant. My P.A. presence was necessary throughout this case for the manipulation and positioning of the surgical extremity. My P.A. was assisting me throughout the duration of this procedure. The skill set of a physician medical assistant was medically necessary to complete this procedure. During the surgical case the surgical product sales consultant was working at the back table and the physician medical assistant was directly assisting me. Operation and Findings: Implants used: ITS Plan of activity: Nonweightbearing Details of procedure: Patient was seen and evaluated preoperatively and found to have a displaced right trimalleolar ankle fracture. Informed consent was obtained after a detailed discussion of risk and benefits of surgery. The operative site was marked. Patient was brought to the OR, placed on the OR table, and given IV sedation and general endotracheal anesthesia. IV antibiotics were given preoperatively. A timeout procedure was performed. The skin and soft tissue were examined. Patient had minimal swelling and soft tissue appeared to be ready for definitive open reduction internal fixation. The left leg was prepped with alcohol followed by Hibiclens and draped in the usual sterile fashion. Attention was turned towards the distal fibula. A four-inch incision was made over the distal fibula. The subcutaneous tissue was dissected with Bovie. The fracture site was visualized. The fracture site was cleaned with curets. The fracture was now reduced. The fracture keyed into anatomic alignment. Fracture tenaculums and K-wires were used to hold provisional fixation. A plate was selected. The plate was provisionally held to bone with K-wires. 3.5 cortical screws were used to compress the plate to bone. Multiple screws were placed above and below the fracture. Next attention was turned towards the medial malleolus. The medial malleolus supposed through a 3 cm incision. Saphenous vein was retracted. Fracture was visualized. Fracture was cleaned with curettes. Fracture was now reduced and keyed into anatomic alignment. K wires were used to hold provisional fixation. 2 guidepins for the 4.0 cannulated screws were placed in a retrograde fashion across the fracture. Fluoroscopy was used to confirm guidepin placement. Cannulated drill was placed over the guidepin. 2 appropriate length screws were now placed. Good compression was applied. Fluoroscopy confirmed well aligned fracture with well-placed hardware. Next, attention was turned to the syndesmosis. The syndesmosis was stressed. There was widening of the syndesmosis with external rotation of the ankle. The syndesmosis was now held in a reduced position with the ankle in neutral position. Two cortical screws were now placed through the fibula plate into the tibia. Fluoroscopy confirmed appropriate screw placement with well-aligned syndesmosis. Incisions were thoroughly irrigated. The subcutaneous tissue was closed with 3-0 Vicryl and the skin was closed with 3-0 nylon. Sterile dressings were applied. A well molded well-padded splint was applied. The patient was transferred to Recovery in stable condition. Needle and sponge counts were correct.
[2018-01-01] MEDS ORDERED: fentaNYL Citrate Inj 100 MCG/2 ML Ampul ONE (11:08)
[2018-01-01] MEDS ORDERED: Lidocaine PF 1% Inj 5 ML Syringe INFILTRATN ONE (12:00)
[2018-01-01] MEDS ORDERED: Neostigmine Inj 5 MG/5 ML Syringe IV.PUSH ONE (12:00)
[2018-01-01] MEDS ORDERED: Glycopyrrolate Inj 1 MG/5 ML Syringe IV.PUSH ONE (12:00)
[2018-01-01] MEDS ORDERED: Ketorolac Inj 30 MG/ML (IVP) Vial IV.PUSH ONE (12:00)
[2018-01-01] MEDS ORDERED: Phenylephrine/NS 1000 MCG/10ML Syringe IV.PUSH ONE (12:00)
--- NOTE | 2018-01-01 12:14 | XR ---
EXAM DATE: 01/01/2018 12:11 PM EDT AGE/SEX: 77 years / Female INDICATIONS: ORIF right ankle fracture. CLINICAL DATA: This is the patient's subsequent encounter. Patient reports that signs and symptoms h ave been present for 2 days and indicates a pain score of Nonresponsive. MEDICAL/SURGICAL HISTORY: Non-responsive. Non-responsive. COMPARISON: No prior exams available for comparison. FINDINGS: Plate with screws bridging lateral malleolus fracture. Cortical lag screws medial malleolus. Anatomic alignment in single mortise view. CONCLUSION: Anatomic alignment. Electronically signed by: John Hendrix MD 01/01/2018 12:13 PM EDT
[2018-01-01] MEDS: Calcium/Vitamin D 250/125 MG Tablet PO SCH ×2 (13:17→17:07)
--- NOTE | 2018-01-01 14:49 | P.PN ---
Subjective Interval history: Follow-up visit for right bimalleolar ankle fracture and THELMA. Patient is seen and examined resting in bed after returning from the OR this morning, nurse does not report any acute concerns. Patient complains of right foot pain. She denies any shortness of breath, cough, chills, nausea or vomiting. Physical Exam Vital signs: Vital Signs 12/31/17 16:00 12/31/17 18:00 12/31/17 20:00 Temperature 36.3 C L Pulse Rate 56 L 60 52 L Respiratory Rate 19 19 18 Blood Pressure 161/72 H 165/70 H 131/53 L Pulse Oximetry 97 95 12/31/17 21:52 12/31/17 23:15 01/01/18 00:00 Temperature 36.8 C Pulse Rate 54 L 51 L Respiratory Rate 15 18 Blood Pressure 127/57 L Pulse Oximetry 96 01/01/18 02:06 01/01/18 04:00 01/01/18 07:00 Temperature 36.7 C Pulse Rate 58 L 75 Respiratory Rate 18 18 Blood Pressure 124/56 L Pulse Oximetry 98 01/01/18 08:00 01/01/18 08:49 01/01/18 11:00 Temperature 36.9 C 36.6 C Pulse Rate 76 72 62 Respiratory Rate 18 18 18 Blood Pressure 165/83 H 136/70 Pulse Oximetry 99 100 01/01/18 11:15 01/01/18 11:30 01/01/18 11:40 Temperature 36.6 C Pulse Rate 58 L 60 60 Respiratory Rate 18 18 18 Blood Pressure 145/61 H 142/61 H 142/61 H Pulse Oximetry 100 95 100 01/01/18 12:12 Temperature 36.6 C Pulse Rate 55 L Respiratory Rate 15 Blood Pressure 133/57 L Pulse Oximetry 96 Intake & Output 12/31/17 01/01/18 01/01/18 18:59 06:59 18:59 Intake Total 1400 / 1400 Output Total 50 / 50 Balance 1350 / 1350 Weight 74.843 kg Intake: IV 1400 / 1400 LR 1000 mL Inj 1,000 ML @ 75 1400 / 1400 mls/hr IV.CONT .[id number] [facility] Rx# :[id number] Output: Estimated Blood Loss 50 / 50 Other: Date of Last Bowel Movement 12/31/17 Narrative: GENERAL: Well-nourished well-developed white female in no acute distress SKIN: Warm and dry. HEAD: Atraumatic. Normocephalic. EYES: Pupils equal and round. No scleral icterus. No injection or drainage. ENT: No nasal bleeding or discharge. Mucous membranes pink and moist. NECK: Trachea midline. No JVD. CARDIOVASCULAR: Regular rate and rhythm. RESPIRATORY: No accessory muscle use. Upper lung moore clear without any crackles or rhonchi noted. GASTROINTESTINAL: Abdomen soft, non-tender, nondistended. Normoactive bowel sounds MUSCULOSKELETAL: Right lower leg with splint and Musa bandage. + toe movement with capillary refill <3 seconds. NEUROLOGICAL: Awake and alert to person place time. No obvious cranial nerve deficits. Motor grossly within normal limits. Normal speech. Results - Labs CBC & Chem 7: 12/31/17 13:15 01/01/18 04:19 Laboratory Results - last 24 hr 12/31/17 01/01/18 01/01/18 19:32 04:19 06:48 Sodium 141 Potassium 4.8 Chloride 112 H Carbon Dioxide 23.3 Anion Gap 6 BUN 44 H Creatinine 1.73 H Estimated GFR 29 L POC Glucose 116 H 120 H Random Glucose 98 Calcium 8.3 L 01/01/18 01/01/18 11:46 11:57 Sodium Potassium Chloride Carbon Dioxide Anion Gap BUN Creatinine Estimated GFR POC Glucose 129 H 145 H Random Glucose Calcium - Imaging Impressions Ankle X-Ray 12/31/17 13:40 CONCLUSION: Bimalleolar fractures with medial subluxation of the distal tibia. Ankle X-Ray 01/01/18 00:00 CONCLUSION: Anatomic alignment. Assessment and Plan - Assessment (1) Bimalleolar fracture of right ankle Code(s): S82.841A - Displaced bimalleolar fracture of right lower leg, initial encounter for closed fracture Status: Acute (2) Acute kidney injury Code(s): N17.9 - Acute kidney failure, unspecified Status: Acute (3) CKD (chronic kidney disease) stage 3, GFR 30-59 ml/min Code(s): N18.3 - Chronic kidney disease, stage 3 (moderate) Status: Chronic (4) Diabetes mellitus Code(s): E11.9 - Type 2 diabetes mellitus without complications Status: Chronic (5) Hypertension Code(s): I10 - Essential (primary) hypertension Status: Chronic - Plan 77-year-old white female with a history of diabetes mellitus type 2, hypertension who presented after sustaining a fall with 1. Right bimalleolar lower ankle fracture with dislocation - s/p Open reduction internal fixation right ankle trimalleolar fracture, open reduction internal fixation right ankle syndesmosis 01/01 -Pain control with p.o. [place], as needed Morphine for breakthrough pain. 2. Hypertension, chronic essential BP improved, continue to monitor, hold enalapril due to THELMA. 3. Acute kidney injury superimposed on chronic kidney disease stage III -Creatinine this morning slightly improved, continue IV hydration avoid nephrotoxins 4. Hyperlipidemia Continue statin 5. Diabetes mellitus type 2 stop home metformin due to chronic kidney disease -Accu-Cheks with sliding scale insulin, BS stable 6. DVT prophylaxisSCD to left lower leg. -Lovenox initiated by orthopedic surgery.. 7. Tobacco usecessation counseling provided. DuoNeb as needed to be provided encourage incentive spirometer. 8. hyperkalemia -resolved. Discussed Condition With: Patient and nurse. Discharge Planning: PT consult, pending orthopedic clearance. 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
[2018-01-01] MEDS: ceFAZolin 2 GM Premix Inj 2 GM/50 ML PIGGYBACK IV.SIG SCH (17:07)
--- NOTE | 2018-01-02 00:28 | ECG ---
Date Performed: 12/31/2017 Time Performed: 13:21:29 PTAGE: 77 years EKG: SINUS BRADYCARDIA BORDERLINE ECG Since the PREVIOUS TRACING , no significant change noted DOCTOR: Rei Cohen Interpretating Date/Time 01/02/2018 00:27:13
[2018-01-02] MEDS: ceFAZolin 2 GM Premix Inj 2 GM/50 ML PIGGYBACK IV.SIG SCH ×2 (01:54→09:00)
[2018-01-02 05:25] LABS: Calcium 8.1 mg/dL (8.5-10.1); Potassium 4.4 meq/L (3.5-5.1)
--- NOTE | 2018-01-02 06:46 | P.PNOP ---
Subjective Interval history: Resting comfortably in bed Physical Exam Vital signs: Vital Signs 01/01/18 07:00 01/01/18 08:00 01/01/18 08:49 Temperature 98.4 F Pulse Rate 75 76 72 Respiratory Rate 18 18 Blood Pressure 165/83 H Pulse Oximetry 99 01/01/18 11:00 01/01/18 11:15 01/01/18 11:30 Temperature 97.9 F Pulse Rate 62 58 L 60 Respiratory Rate 18 18 18 Blood Pressure 136/70 145/61 H 142/61 H Pulse Oximetry 100 100 95 01/01/18 11:40 01/01/18 12:12 01/01/18 15:11 Temperature 97.9 F 97.9 F Pulse Rate 60 55 L Respiratory Rate 18 15 18 Blood Pressure 142/61 H 133/57 L Pulse Oximetry 100 96 01/01/18 16:00 01/01/18 19:47 01/01/18 20:00 Temperature 97.9 F 97.7 F Pulse Rate 58 L 66 64 Respiratory Rate 16 18 Blood Pressure 156/72 H 138/65 Pulse Oximetry 97 99 01/01/18 20:15 01/01/18 23:37 01/01/18 23:44 Temperature 97.7 F Pulse Rate 62 65 Respiratory Rate 18 18 Blood Pressure 133/63 Pulse Oximetry 98 01/02/18 00:53 01/02/18 03:21 01/02/18 03:55 Temperature 98.1 F Pulse Rate 58 L 62 Respiratory Rate 18 18 Blood Pressure 140/63 Pulse Oximetry 98 Intake & Output 01/01/18 01/01/18 01/02/18 06:59 18:59 06:59 Intake Total 1930 / 1930 480 / 480 Output Total 50 / 50 Balance 1880 / 1880 480 / 480 Weight 74.8 kg Intake: IV 1450 / 1450 LR 1000 mL Inj 1,000 ML @ 75 1400 / 1400 mls/hr IV.CONT .[id number] [facility] Rx# :[id number] Ancef 2 GM Premix Inj 2 gm In 50 / 50 50 ml @ 100 mls/hr IV.SIG Q8H [facility] Rx#:[id number] Oral 480 / 480 480 / 480 Output: Estimated Blood Loss 50 / 50 Other: # Voids 2 6 Date of Last Bowel Movement 07/22/18 07/23/18 # Bowel Movements 0 Narrative: Right lower extremity: Clean dry dressings intact. Intact sensation in toes. Is able to move toes appropriately. Results - Labs CBC & Chem 7: 12/31/17 13:15 01/02/18 04:27 Laboratory Results - last 24 hr 01/01/18 01/01/18 01/01/18 06:48 11:46 11:57 Sodium Potassium Chloride Carbon Dioxide Anion Gap BUN Creatinine Estimated GFR POC Glucose 120 H 129 H 145 H Random Glucose Calcium 01/01/18 01/01/18 01/02/18 16:10 19:51 04:27 Sodium 141 Potassium 4.4 Chloride 110 H Carbon Dioxide 23.0 Anion Gap 8 BUN 36 H Creatinine 1.78 H Estimated GFR 28 L POC Glucose 139 H 205 H Random Glucose 115 H Calcium 8.1 L - Imaging Impressions Ankle X-Ray 01/01/18 00:00 CONCLUSION: Anatomic alignment. Assessment and Plan - Assessment and Plan Right bimalleolar ankle fracture ORIF POD 1 Straight nonweightbearing right lower extremity Elevation to decrease swelling Maintain splint Plan for discharge to rehab versus home Follow-up appointment with Dr. Sue or PA in 2 weeks
[2018-01-02] MEDS: Insulin NovoLOG Aspart Correctional Sugar Inj SQ SCH ×4 (07:52→20:05)
[2018-01-02] MEDS: Sertraline 50 MG Tablet PO SCH (08:53)
[2018-01-02] MEDS: Senna/Docusate Sodium 8.6/50 MG Tablet PO SCH ×2 (08:53→20:04)
[2018-01-02] MEDS: Metoprolol Tartrate 25 MG Tablet PO SCH ×2 (08:53→20:04)
[2018-01-02] MEDS: Calcium/Vitamin D 250/125 MG Tablet PO SCH ×4 (08:53→17:59)
[2018-01-02] MEDS: Enoxaparin Inj 30 MG/0.3 ML Syringe SQ SCH (09:00)
--- NOTE | 2018-01-02 11:39 | P.PN ---
Subjective Interval history: Follow-up visit for right bimalleolar ankle fracture and THELMA. Patient is seen and examined resting in bed comfortably in no acute distress. She reports that her pain is much better today and voices no acute concerns at the moment. She denies any fevers, chills, nausea, vomiting, diarrhea, cough or shortness of breath. Physical Exam Vital signs: Vital Signs 01/01/18 11:40 01/01/18 12:12 01/01/18 15:11 Temperature 36.6 C 36.6 C Pulse Rate 60 55 L Respiratory Rate 18 15 18 Blood Pressure 142/61 H 133/57 L Pulse Oximetry 100 96 01/01/18 16:00 01/01/18 19:47 01/01/18 20:00 Temperature 36.6 C 36.5 C Pulse Rate 58 L 66 64 Respiratory Rate 16 18 Blood Pressure 156/72 H 138/65 Pulse Oximetry 97 99 01/01/18 20:15 01/01/18 23:37 01/01/18 23:44 Temperature 36.5 C Pulse Rate 62 65 Respiratory Rate 18 18 Blood Pressure 133/63 Pulse Oximetry 98 01/02/18 00:53 01/02/18 03:21 01/02/18 03:55 Temperature 36.7 C Pulse Rate 58 L 62 Respiratory Rate 18 18 Blood Pressure 140/63 Pulse Oximetry 98 01/02/18 07:27 01/02/18 08:00 01/02/18 09:23 Temperature 36.9 C Pulse Rate 82 Respiratory Rate 18 16 18 Blood Pressure 148/67 H Pulse Oximetry 01/02/18 11:13 Temperature Pulse Rate Respiratory Rate Blood Pressure Pulse Oximetry 98 Intake & Output 01/01/18 01/02/18 01/02/18 18:59 06:59 18:59 Intake Total 1930 / 1930 480 / 480 50 / 50 Output Total 50 / 50 Balance 1880 / 1880 480 / 480 50 / 50 Weight 74.8 kg Intake: IV 1450 / 1450 50 / 50 LR 1000 mL Inj 1,000 ML @ 75 1400 / 1400 mls/hr IV.CONT .[id number] [facility] Rx# :[id number] Ancef 2 GM Premix Inj 2 gm In 50 / 50 50 / 50 50 ml @ 100 mls/hr IV.SIG Q8H [facility] Rx#:[id number] Oral 480 / 480 480 / 480 Output: Estimated Blood Loss 50 / 50 Other: # Voids 2 6 Date of Last Bowel Movement 01/01/18 01/01/18 # Bowel Movements 0 Narrative: GENERAL: Well-nourished well-developed white female in no acute distress SKIN: Warm and dry. HEAD: Atraumatic. Normocephalic. EYES: Pupils equal and round. No scleral icterus. No injection or drainage. ENT: No nasal bleeding or discharge. Mucous membranes pink and moist. NECK: Trachea midline. CARDIOVASCULAR: Regular rate and rhythm. RESPIRATORY: No accessory muscle use. Upper lung moore clear without any crackles or rhonchi noted. GASTROINTESTINAL: Abdomen soft, non-tender, nondistended. Normoactive bowel sounds MUSCULOSKELETAL: Right lower leg with splint and Musa bandage. + toe movement with capillary refill <3 seconds. NEUROLOGICAL: Awake and alert to person place time. No obvious cranial nerve deficits. Motor grossly within normal limits. Normal speech. Results - Labs CBC & Chem 7: 12/31/17 13:15 01/02/18 04:27 Laboratory Results - last 24 hr 01/01/18 01/01/18 01/01/18 11:46 11:57 16:10 Sodium Potassium Chloride Carbon Dioxide Anion Gap BUN Creatinine Estimated GFR POC Glucose 129 H 145 H 139 H Random Glucose Calcium 01/01/18 01/02/18 01/02/18 19:51 04:27 07:10 Sodium 141 Potassium 4.4 Chloride 110 H Carbon Dioxide 23.0 Anion Gap 8 BUN 36 H Creatinine 1.78 H Estimated GFR 28 L POC Glucose 205 H 118 H Random Glucose 115 H Calcium 8.1 L 01/02/18 11:10 Sodium Potassium Chloride Carbon Dioxide Anion Gap BUN Creatinine Estimated GFR POC Glucose 142 H Random Glucose Calcium - Imaging Impressions Ankle X-Ray 01/01/18 00:00 CONCLUSION: Anatomic alignment. Assessment and Plan - Assessment (1) Bimalleolar fracture of right ankle Code(s): S82.841A - Displaced bimalleolar fracture of right lower leg, initial encounter for closed fracture Status: Acute (2) Acute kidney injury Code(s): N17.9 - Acute kidney failure, unspecified Status: Acute (3) CKD (chronic kidney disease) stage 3, GFR 30-59 ml/min Code(s): N18.3 - Chronic kidney disease, stage 3 (moderate) Status: Chronic (4) Diabetes mellitus Code(s): E11.9 - Type 2 diabetes mellitus without complications Status: Chronic (5) Hypertension Code(s): I10 - Essential (primary) hypertension Status: Chronic - Plan 77-year-old white female with a history of diabetes mellitus type 2, hypertension who presented after sustaining a fall with 1. Right bimalleolar lower ankle fracture with dislocation - s/p Open reduction internal fixation right ankle trimalleolar fracture, open reduction internal fixation right ankle syndesmosis 01/01 -Pain control with p.o. [place], as needed Morphine for breakthrough pain. -Ortho instructions for straight nonweightbearing to right lower extremity, elevation to decrease swelling, maintain splint and follow-up as outpatient in [address] Sue. 2. Hypertension, chronic essential BP improved, continue to monitor, hold enalapril due to THELMA. 3. Acute kidney injury superimposed on chronic kidney disease stage III -Creatinine with slight increase this am, but stable Creatinine 1.78, GFR 48, BUN 36 avoid nephrotoxins -Follow renal function intermittently 4. Hyperlipidemia Continue statin 5. Diabetes mellitus type 2 continue to hold Metformin due to CKD -Accu-Cheks with sliding scale insulin, BS stable 6. DVT prophylaxisLovenox 7. Tobacco usecessation counseling provided. DuoNeb as needed to be provided encourage incentive spirometer. 8. hyperkalemia -resolved. Discussed Condition With: Patient and nurse. Discharge Planning: Patient seen and evaluated by PT recommending PT at rehab. regional program manager assisting in placement. (1) Bimalleolar fracture of right ankle Qualifiers: Encounter type: initial encounter Fracture type: closed Qualified Code(s): S82.841A - Displaced bimalleolar fracture of right lower leg, initial encounter for closed fracture (4) Diabetes mellitus Qualifiers: Diabetes mellitus type: type 2 Diabetes mellitus [facility] insulin use: without giver use Diabetes mellitus complication status: with kidney complications Diabetes mellitus complication detail: with chronic kidney disease Chronic kidney disease stage: stage 3 (moderate) Qualified Code(s): E11.22 - Type 2 diabetes mellitus with diabetic chronic kidney disease; N18.3 - Chronic kidney disease, stage 3 (moderate) (5) Hypertension Qualifiers: Hypertension type: essential hypertension Qualified Code(s): I10 - Essential (primary) hypertension
--- NOTE | 2018-01-03 06:56 | P.PNOP ---
Subjective Interval history: Resting comfortably with no new complaints Physical Exam Vital signs: Vital Signs 01/02/18 07:27 01/02/18 08:00 01/02/18 09:23 Temperature 98.4 F Pulse Rate 82 Respiratory Rate 18 16 18 Blood Pressure 148/67 H Pulse Oximetry 01/02/18 11:13 01/02/18 12:00 01/02/18 15:08 Temperature 97.7 F 98 F Pulse Rate 57 L 55 L Respiratory Rate 18 18 Blood Pressure 102/57 L 162/65 H Pulse Oximetry 98 95 98 01/02/18 17:21 01/02/18 20:34 01/02/18 21:06 Temperature 98.6 F Pulse Rate 88 Respiratory Rate 18 20 18 Blood Pressure 169/68 H Pulse Oximetry 97 01/02/18 23:00 01/02/18 23:45 01/03/18 03:28 Temperature 98.4 F 98.1 F Pulse Rate 78 61 67 Respiratory Rate 18 18 Blood Pressure 146/65 H 133/60 Pulse Oximetry 96 97 01/03/18 04:31 Temperature Pulse Rate 60 Respiratory Rate Blood Pressure Pulse Oximetry Intake & Output 01/02/18 01/02/18 01/03/18 06:59 18:59 06:59 Intake Total 480 / 480 770 / 770 Output Total 500 / 500 Balance 480 / 480 770 / 770 -500 / -500 Weight 74.8 kg 74.8 kg Intake: IV 50 / 50 Ancef 2 GM Premix Inj 2 gm In 50 / 50 50 ml @ 100 mls/hr IV.SIG Q8H [facility] Rx#:[id number] Oral 480 / 480 720 / 720 Output: Urine 500 / 500 Other: # Voids 6 3 3 Date of Last Bowel Movement 01/01/18 01/01/18 01/01/18 # Bowel Movements 0 Narrative: Right lower extremity: Dry dressings intact. Intact distal pulses. Results - Labs CBC & Chem 7: 12/31/17 13:15 01/02/18 04:27 Laboratory Results - last 24 hr 01/02/18 01/02/18 01/02/18 07:10 11:10 16:09 POC Glucose 118 H 142 H 133 H 01/02/18 19:32 POC Glucose 247 H Assessment and Plan - Assessment and Plan Right bimalleolar ankle fracture ORIF POD 2 Strict nonweightbearing right lower extremity Elevation to decrease swelling Maintain splint Plan for discharge to rehab Linette was able to get in touch with patient's caregiver. Multiple attempts yesterday was made. Follow-up appointment with Dr. Sue or PA in 2 weeks
--- NOTE | 2018-01-03 09:09 | P.PN ---
Subjective Interval history: Follow-up visit for right bimalleolar ankle fracture and THELMA. Patient seen and examined resting in bed comfortably, appears to be in no acute distress. She denies any fevers, chills, nausea, vomiting, diarrhea, cough, shortness of breath or chest pain. She reports that her pain is "okay". Voices no acute concerns or complaints at this moment. Physical Exam Vital signs: Vital Signs 01/02/18 09:23 01/02/18 11:13 01/02/18 12:00 Temperature 36.5 C Pulse Rate 57 L Respiratory Rate 18 18 Blood Pressure 102/57 L Pulse Oximetry 98 95 01/02/18 15:08 01/02/18 17:21 01/02/18 20:34 Temperature 36.6 C Pulse Rate 55 L Respiratory Rate 18 18 20 Blood Pressure 162/65 H Pulse Oximetry 98 01/02/18 21:06 01/02/18 23:00 01/02/18 23:45 Temperature 37.0 C 36.9 C Pulse Rate 88 78 61 Respiratory Rate 18 18 Blood Pressure 169/68 H 146/65 H Pulse Oximetry 97 96 01/03/18 03:28 01/03/18 04:31 Temperature 36.7 C Pulse Rate 67 60 Respiratory Rate 18 Blood Pressure 133/60 Pulse Oximetry 97 Intake & Output 01/02/18 01/03/18 01/03/18 18:59 06:59 18:59 Intake Total 770 / 770 360 / 360 Output Total 500 / 500 Balance 770 / 770 -140 / -140 Weight 74.8 kg Intake: IV 50 / 50 Ancef 2 GM Premix Inj 2 gm In 50 / 50 50 ml @ 100 mls/hr IV.SIG Q8H [facility] Rx#:[id number] Oral 720 / 720 360 / 360 Output: Urine 500 / 500 Other: # Voids 3 6 Date of Last Bowel Movement 01/01/18 01/01/18 # Bowel Movements 0 Narrative: GENERAL: Well-nourished well-developed white female in no acute distress SKIN: Warm and dry. HEAD: Atraumatic. Normocephalic. EYES: Pupils equal and round. No scleral icterus. No injection or drainage. ENT: No nasal bleeding or discharge. Mucous membranes pink and moist. NECK: Trachea midline. CARDIOVASCULAR: Regular rate and rhythm. RESPIRATORY: No accessory muscle use. Lung sounds throughout clear without any crackles or rhonchi noted. GASTROINTESTINAL: Abdomen soft, non-tender, nondistended. Normoactive bowel sounds MUSCULOSKELETAL: Right lower leg with splint and Musa bandage. + toe movement with capillary refill <3 seconds. NEUROLOGICAL: Awake and alert to person place time. No obvious cranial nerve deficits. Motor grossly within normal limits. Normal speech. Results - Labs CBC & Chem 7: 12/31/17 13:15 01/03/18 08:23 Laboratory Results - last 24 hr 01/02/18 01/02/18 01/02/18 11:10 16:09 19:32 POC Glucose 142 H 133 H 247 H Magnesium 01/03/18 08:23 POC Glucose Magnesium Cancelled Assessment and Plan - Assessment (1) Bimalleolar fracture of right ankle Code(s): S82.841A - Displaced bimalleolar fracture of right lower leg, initial encounter for closed fracture Status: Acute (2) Acute kidney injury Code(s): N17.9 - Acute kidney failure, unspecified Status: Acute (3) CKD (chronic kidney disease) stage 3, GFR 30-59 ml/min Code(s): N18.3 - Chronic kidney disease, stage 3 (moderate) Status: Chronic (4) Diabetes mellitus Code(s): E11.9 - Type 2 diabetes mellitus without complications Status: Chronic (5) Hypertension Code(s): I10 - Essential (primary) hypertension Status: Chronic - Plan 77-year-old white female with a history of diabetes mellitus type 2, hypertension who presented after sustaining a fall with 1. Right bimalleolar lower ankle fracture with dislocation - s/p Open reduction internal fixation right ankle trimalleolar fracture, open reduction internal fixation right ankle syndesmosis 01/01 -Pain control with p.o. [place], as needed Morphine for breakthrough pain. -Ortho instructions for straight nonweightbearing to right lower extremity, elevation to decrease swelling, maintain splint and follow-up as outpatient in [address] Sue. 2. Hypertension, chronic essential Hold enalapril due to THELMA, isolative HTN this morning. 3. Acute kidney injury superimposed on chronic kidney disease stage III -Creatinine with slight increase this am, but stable Creatinine 1.78, GFR 48, BUN 36 avoid nephrotoxins -Follow renal function intermittently 4. Hyperlipidemia Continue statin 5. Diabetes mellitus type 2 continue to hold Metformin due to CKD -Accu-Cheks with sliding scale insulin, BS stable 6. DVT prophylaxisLovenox 7. Tobacco usecessation counseling provided. DuoNeb as needed to be provided encourage incentive spirometer. 8. hyperkalemia -resolved. Discussed Condition With: Nurse and patient. Discharge Planning: bi manager arranging discharge to [facility] for rehab. (1) Bimalleolar fracture of right ankle Qualifiers: Encounter type: initial encounter Fracture type: closed Qualified Code(s): S82.841A - Displaced bimalleolar fracture of right lower leg, initial encounter for closed fracture (4) Diabetes mellitus Qualifiers: Diabetes mellitus type: type 2 Diabetes mellitus group home insulin use: without termite technician use Diabetes mellitus complication status: with kidney complications Diabetes mellitus complication detail: with chronic kidney disease Chronic kidney disease stage: stage 3 (moderate) Qualified Code(s): E11.22 - Type 2 diabetes mellitus with diabetic chronic kidney disease; N18.3 - Chronic kidney disease, stage 3 (moderate) (5) Hypertension Qualifiers: Hypertension type: essential hypertension Qualified Code(s): I10 - Essential (primary) hypertension
[2018-01-03 09:12] LABS: Calcium 8.5 mg/dL (8.5-10.1); Carbon Dioxide 23.2 meq/L (21.0-32.0); Magnesium 2.3 mg/dL (1.5-2.5); Potassium 4.4 meq/L (3.5-5.1)
[2018-01-03] MEDS: Enoxaparin Inj 30 MG/0.3 ML Syringe SQ SCH (09:49)
[2018-01-03] MEDS: Metoprolol Tartrate 25 MG Tablet PO SCH ×2 (09:50→20:46)
[2018-01-03] MEDS: Sertraline 50 MG Tablet PO SCH (09:50)
[2018-01-03] MEDS: Calcium/Vitamin D 250/125 MG Tablet PO SCH ×3 (09:50→17:10)
[2018-01-03] MEDS: Senna/Docusate Sodium 8.6/50 MG Tablet PO SCH ×2 (09:50→20:45)
[2018-01-03] MEDS: Insulin NovoLOG Aspart Correctional Sugar Inj SQ SCH ×3 (16:54→20:46)
[2018-01-04 01:42] VITALS: RESP 15
[2018-01-04 01:44] VITALS: BP 148/65; PULSE 60; TEMP 98.1; O2SAT 97
--- NOTE | 2018-01-04 06:44 | P.PNOP ---
Subjective Interval history: POD 3 status post ORIF of right ankle Doing well. Pain controlled. No changes. Physical Exam Vital signs: Vital Signs 01/03/18 08:00 01/03/18 12:00 01/03/18 16:00 Temperature 98.4 F 98.4 F 98.0 F Pulse Rate 69 55 L 68 Respiratory Rate 17 18 17 Blood Pressure 190/75 H 136/77 178/74 H Pulse Oximetry 96 99 100 01/03/18 20:00 01/04/18 00:00 01/04/18 00:30 Temperature 97.9 F 98.1 F Pulse Rate 64 60 Respiratory Rate 18 18 15 Blood Pressure 175/74 H 148/65 H Pulse Oximetry 98 97 Intake & Output 01/03/18 01/03/18 01/04/18 06:59 18:59 06:59 Intake Total 360 / 360 800 / 800 Output Total 500 / 500 800 / 800 Balance -140 / -140 0 / 0 Weight 74.8 kg Intake: Oral 360 / 360 800 / 800 Output: Urine 500 / 500 800 / 800 Other: # Voids 6 4 Date of Last Bowel Movement 01/01/18 01/03/18 01/03/18 # Bowel Movements 0 1 Narrative: RLE: Dressings clean and dry. Intact. Splint present. Full sensation to toes. Results - Labs CBC & Chem 7: 12/31/17 13:15 01/03/18 08:23 Laboratory Results - last 24 hr 01/03/18 01/03/18 01/03/18 08:23 08:23 11:55 Sodium 143 Potassium 4.4 Chloride 112 H Carbon Dioxide 23.2 Anion Gap 8 BUN 31 H Creatinine 1.37 H Estimated GFR 37 L POC Glucose 200 H Random Glucose 123 H Calcium 8.5 Magnesium 2.3 Cancelled 01/03/18 01/03/18 17:07 20:33 Sodium Potassium Chloride Carbon Dioxide Anion Gap BUN Creatinine Estimated GFR POC Glucose 104 241 H Random Glucose Calcium Magnesium Assessment and Plan - Assessment and Plan Right bimalleolar ankle fracture ORIF POD 3 Strict nonweightbearing right lower extremity Elevation to decrease swelling Maintain splint Plan for discharge to rehab Orthopedically cleared for discharge to rehab Follow-up appointment with Dr. Sue or PA in 2 weeks
[2018-01-04] MEDS: Sertraline 50 MG Tablet PO SCH (08:12)
[2018-01-04] MEDS: Senna/Docusate Sodium 8.6/50 MG Tablet PO SCH (08:12)
[2018-01-04] MEDS: Calcium/Vitamin D 250/125 MG Tablet PO SCH ×2 (08:13→12:23)
[2018-01-04] MEDS: Metoprolol Tartrate 25 MG Tablet PO SCH (08:13)
--- NOTE | 2018-01-04 10:17 | P.DS ---
Date of admission: 12/31/17 16:52 Primary care physician: UNKNOWN Attending physician on discharge: Evelyn Donaldson Anticipated date of discharge: 01/04/18 Brief History from admission: 77-year-old white female with history of hypertension, hyperlipidemia, diabetes mellitus type 2 who was up in a ladder in her bedroom attempting to clean her ceiling fans of which she accidentally lost her balance and fell sustaining injury of her right ankle. She was found to have a bimalleolar layer fracture with medial subluxation of the distal tibial and reduction was done in the emergency room. At this time, patient states her pain is controlled. She did not lose consciousness during the fall. She has no other complaints at this time. DS: Diagnosis - Discharge Diagnosis (1) Bimalleolar fracture of right ankle Status: Acute (2) Acute kidney injury Status: Acute (3) CKD (chronic kidney disease) stage 3, GFR 30-59 ml/min Status: Chronic (4) Diabetes mellitus Status: Chronic (5) Hypertension Status: Chronic DS: Medications - Discharge Medications Prescriptions: hydrocodone-acetaminophen 1 tab PO Q4H PRN #40 tab PRN Reason: Acute Pain DS: Summary Hospital Course: 77-year-old female with past medical history of HTN, HLD, DM who presented to ED on 12/31 after she accidentally fell off a ladder and sustained injury to right ankle. Imaging of right ankle revealed dislocation and fracture, orthopedic services were consulted and evaluated patient. On 01/01 patient underwent ORIF of ankle trimalleolar fracture, open reduction internal fixation of right ankle syndesmosis by Dr. Sue. Right ankle was placed in a splint with recommendations for nonweightbearing to right lower extremity. Patient was seen and evaluated by physical therapy who recommended rehab with ongoing PT. patient's pain was initially managed with p.o. and IV medications now pain well controlled on p.o. medications. She has been cleared for discharge by orthopedic services and has decided to continue rehab at [facility]. 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 Patient is seen and examined resting in bed comfortably and appears to be in no acute distress. She denies any cough, shortness of breath, fevers, chills, nausea, vomiting, diarrhea, headaches, dizziness or chest pain. She is deciding to go to rehab center, voices no acute concerns or complaints. She reports pain is well controlled. - Time Spent with Patient Total time spent providing and/or coordinating discharge services: - Quality: VTE Deep Vein Thrombosis/Pulmonary Embolism Present on Admission: No Exam Vital signs: Vital Signs 01/03/18 12:00 01/03/18 16:00 01/03/18 20:00 Temperature 36.9 C 36.7 C 36.6 C Pulse Rate 55 L 68 64 Respiratory Rate 18 17 18 Blood Pressure 136/77 178/74 H 175/74 H Pulse Oximetry 99 100 98 01/04/18 00:00 01/04/18 00:30 Temperature 36.7 C Pulse Rate 60 Respiratory Rate 18 15 Blood Pressure 148/65 H Pulse Oximetry 97 Intake & Output 01/03/18 01/04/18 01/04/18 18:59 06:59 18:59 Intake Total 800 / 800 Output Total 800 / 800 Balance 0 / 0 Intake: Oral 800 / 800 Output: Urine 800 / 800 Other: # Voids 4 Date of Last Bowel Movement 01/03/18 01/03/18 # Bowel Movements 1 Narrative: GENERAL: Well-nourished well-developed white female in no acute distress SKIN: Warm and dry. HEAD: Atraumatic. Normocephalic. EYES: Pupils equal and round. No scleral icterus. No injection or drainage. ENT: No nasal bleeding or discharge. Mucous membranes pink and moist. NECK: Trachea midline. CARDIOVASCULAR: Regular rate and rhythm. RESPIRATORY: No accessory muscle use. Lung sounds throughout clear without any crackles or rhonchi noted. GASTROINTESTINAL: Abdomen soft, non-tender, nondistended. Normoactive bowel sounds MUSCULOSKELETAL: Right lower leg with splint and Musa bandage. + toe movement with capillary refill <3 seconds. NEUROLOGICAL: Awake and alert to person place time. No obvious cranial nerve deficits. Motor grossly within normal limits. Normal speech. Results Procedures completed during hospitalization: 01/01/18 Open reduction internal fixation right ankle trimalleolar fracture, open reduction internal fixation right ankle syndesmosis Labs on day of discharge: Labs from last 24 hours 01/04/18 01/03/18 01/03/18 08:08 20:33 17:07 POC Glucose 120 H 241 H 104 01/03/18 11:55 POC Glucose 200 H - Impressions ITS Impressions Ankle X-Ray 01/01/18 00:00 CONCLUSION: Anatomic alignment. Discharge Plan - Discharge Disposition Patient Disposition: 03 Discharge to SNF - Discharge Condition Condition: Good - Discharge Order Discharge Orders: Discharge Order (Routine); Ordered 01/04/18 Ordered By: Isaura Mcmullen Orthopedic Clear for Discharge (Routine); Ordered 01/04/18 Ordered By: Andrews Santana - Physicians Team Primary Care Provider: UNKNOWN, Attending Provider: Evelyn Donaldson Other Providers: Bull Sue MD ; [facility]
[2018-01-04] MEDS: Enoxaparin Inj 30 MG/0.3 ML Syringe SQ SCH (12:22)
== END 2018-01-04 15:44 ==
LOC: NEPE 12:47 → NEDA 16:52 → N06 18:52
PROVIDERS: ADMIT Family Medicine; ATTEND Family Medicine
PROC: ORIFANK (2018-01-01 09:24)